=== PATIENT | female | born 1965 | race Caucasian/White ===

== ENCOUNTER 2019-08-11 20:48 | Emergency (ER) | payer OTHER ==
[~2019-08-11] VITALS: Ht 152.4 cm; Wt 86.2 kg
[2019-08-11 20:58] VITALS: Ht 152.4 cm; Wt 86.2 kg
[2019-08-11 21:21] LABS: BASOPHIL % 0 % (0-2); PLATELET COUNT 346 x10^3mcL (130-400)
[2019-08-11 21:28] LABS: CALCIUM 8.3 mg/dL (8.5-10.1); CARBON DIOXIDE 26.2 mmol/L (21-32); CHLORIDE SERUM 101 mmol/L (98-107); CREATININE SERUM 0.8 mg/dL (0.6-1.0); GFR1 > 60 mL/min; GLUCOSE SERUM 201 mg/dL (74-106); POTASSIUM SERUM 3.5 mmol/L (3.5-5.1); SODIUM SERUM 138 mmol/L (136-145)
[2019-08-11 21:32] LABS: ALBUMIN 3.5 g/dL (3.4-5.0); ALKALINE PHOSPHATASE 77 U/L (46-116); ALT/SGPT 36 U/L (14-59); AST/SGOT 20 U/L (15-37); BILIRUBIN TOTAL 0.6 mg/dL (0.20-1.00); LIPASE 128 IU/L (73-393); TOTAL PROTEIN, SERUM 7.8 g/dL (6.4-8.2)
[2019-08-11 22:21] LABS: microscopic required? YES; urine erythrocyte 3+ (NEGATIVE)
[2019-08-12 01:09] VITALS: BP 160/96
== END 2019-08-12 01:09 | disposition home or self-care (01) ==
LOC: ED 20:48
PROVIDERS: Specialist
DX: N12 Tubulo-interstitial nephritis, not specified as acute or chronic (principal); I10 Essential (primary) hypertension
CPT/HCPCS: 87804; J0696; J1885; J2405; J7030; J7060; Q0092